=== PATIENT | male | born 1975 | race Caucasian/White ===

== ENCOUNTER 2021-08-05 20:06 | Outpatient (REF) | payer OTHER, SELFPAY ==
[2021-08-05 22:43] LABS: PSA, Screening 0.4 ng/mL (0.0-2.5)
== END 2021-08-05 20:07 | disposition home or self-care (01) ==
LOC: LBN 20:06
PROVIDERS: Visit Provider Nurse Practitioner Gerontology
DX: N13.8 Other obstructive and reflux uropathy (principal); N40.1 Benign prostatic hyperplasia with lower urinary tract symptoms; Z12.5 Encounter for screening for malignant neoplasm of prostate
CPT/HCPCS: 84153

== ENCOUNTER 2022-01-05 09:26 | Outpatient (CLI) | payer OTHER, SELFPAY ==
--- NOTE | 2022-01-05 08:45 | DI.RAD_ITS ---
Exam(s) XR SHOULDER RT COMPLETE 2+V EXAM: XR SHOULDER RT COMPLETE 2+V CLINICAL HISTORY: right shoulder pain TECHNIQUE: COMPARISON: No exams were available for comparison FINDINGS: Two views were obtained. There are marginal osteophytes of the glenoid. Minimal hypertrophic change s at the AC joint noted as well. No other bony or soft tissue abnormality seen. Cartilaginous joint space of the glenohumeral joint appears fairly well maintained. IMPRESSION: RADIATION DOSE DELIVERED: Total DLP
== END 2022-01-05 09:27 | disposition home or self-care (01) ==
LOC: DIORS 09:27
PROVIDERS: Visit Provider Student in an Organized Health Care Education/Training Program
DX: M25.511 Pain in right shoulder (principal)
CPT/HCPCS: 73030

== ENCOUNTER → 2022-01-28 00:28 | Outpatient (CLI) | payer OTHER, SELFPAY ==
--- NOTE | 2022-01-28 | DI.DEXA_ITS ---
Exam(s) XR DEXA BONE DENSITY W/WO NEGRA EXAM: XR DEXA BONE DENSITY W/WO NEGRA CLINICAL HISTORY: OSTEOPENIA,F/U 05/29/2017 T SCORE OF -1.4 TECHNIQUE: [employer] Horizon C densitometer analysis of left hip, lumbar spine and left forearm. COMPARISON: [facility] BONE DENSITOMETRY from 05/29/2017from [facility] systems in [facility] FINDINGS: Lateral view of the thoracic and lumbar spine shows no evidence of compression fractures. Bone mineral density measurements of the lumbar spine correspond to a total T-score of 0.3, in the no rmal range. this is not significantly changed from the prior exam. Bone mineral density measurements of the left hip correspond to a total T-score of -1.2 . The femora l neck T-score is -1.3, in the mildly osteopenic range.. This is not significantly changed from mynor or.. The left forearm bone mineral density measurements correspond to a T-score of the distal 3rd of -1.7 , in the osteopenic range. The forearm was not analyzed on the prior exam.. IMPRESSION: Normal bone mineral density of the lumbar spine. Osteopenia of the left hip and left forearm.
== END ==
PROVIDERS: Visit Provider Emergency Medicine
DX: Z13.820 Encounter for screening for osteoporosis (principal); M85.89 Other specified disorders of bone density and structure, multiple sites
CPT/HCPCS: 77080

== ENCOUNTER → 2022-03-08 03:03 | Outpatient (CLI) | payer OTHER, SELFPAY ==
--- NOTE | 2022-03-08 06:45 | DI.MRI_ITS ---
Exam(s) MR UPPER JOINT RT WO EXAM: MR UPPER JOINT RT WO CLINICAL HISTORY: R SHOULDER PAIN,RT RTC TENDONITIS,ARTHRITIS RT AC JOINT,BURSITIS,M75.51,. TECHNIQUE: Multiplanar multisequence MRI was performed. COMPARISON: MR MR SHOULDER RT WO CONTRAST from 12/16/2020 CR XR SHOULDER RT COMPLETE 2+V from 01/05/2022 FINDINGS: The examination is limited due to patient motion artifact. BONES: There is no fracture or contusion pattern. JOINTS: Mild degenerative changes seen at the acromioclavicular joint. The glenohumeral joint is nor mal. TENDONS: Supraspinatus: Small focus of hyperintense signal seen in the supraspinatus tendon near the musculote ndinous junction which may represent a small intrasubstance tear. Infraspinatus: Unremarkable. Subscapularis: Hyperintense signal seen in the subscapularis tendon near its insertion site consisten t with an intrasubstance tear. Teres Minor: Unremarkable. Biceps and [place]: Unremarkable. MUSCLES: Unremarkable. GLENOID LABRUM: Unremarkable on this noncontrast examination. SOFT TISSUES: Unremarkable. LIGAMENTS: Unremarkable. OTHER: Subacromial and subdeltoid bursae are unremarkable. IMPRESSION: 1. Hyperintense signal seen in the subscapularis tendon near its insertion site consistent with an in trasubstance tear. 2. Focus of hyperintense signal seen in the supraspinatus tendon near the musculotendinous junction w hich may represent a small intrasubstance tear. 3. Degenerative changes seen at the acromioclavicular joint. DATA REPOSITORY:
== END ==
PROVIDERS: Visit Provider Student in an Organized Health Care Education/Training Program
DX: M25.511 Pain in right shoulder (principal); M19.011 Primary osteoarthritis, right shoulder; M75.81 Other shoulder lesions, right shoulder; M75.101 Unspecified rotator cuff tear or rupture of right shoulder, not specified as traumatic; M75.21 Bicipital tendinitis, right shoulder; M75.51 Bursitis of right shoulder
CPT/HCPCS: 73221

== ENCOUNTER 2022-05-12 08:50 | Day surgery (SDC) | payer OTHER, SELFPAY ==
[2022-05-12] VITALS (11 sets, daily range): BP systolic 105–139; BP diastolic 49–87; PULSE 50–65; RESP 10–18; TEMP 36.2–36.6; O2SAT 92–99; BMI 36.4
--- NOTE | 2022-05-12 09:25 | W.ANESPRE ---
General Info Date of Service Date Performed: 05/12/22 Height: 5 ft 11 in Weight: 118.5 kg Body Mass Index (BMI): 36.4 Surgical Procedure: Operation Date: 05/12/22 11:10 Proposed Procedure Side Surgeon p Shoulder Arthroscopy w/Extensive Debridement, Subacromial Decompression,Distal Clavicle Excision and Possible Biceps Tenodesis Right Grant Prieto MD Meds Allergies and Home Medications Allergies Allergy/AdvReac Type Severity Reaction Status Date / Time aripiprazole [From Abiliy] Allergy Anaphylaxis Verified 05/12/22 09:03 house dust AdvReac Intermediate Verified 05/12/22 09:03 pollen extracts AdvReac Intermediate Verified 05/12/22 09:03 Home Medication Medication Instructions Recorded acetaminophen 325 mg capsule 325 mg PO ONCE PRN 06/29/21 adalimumab 40 mg/0.8 mL 40 mg subcut Q2W 06/29/21 subcutaneous syringe kit (Humira) albuterol 90 mcg/actuation aerosol mcg inhalation DAILY 06/29/21 inhaler aspirin 81 mg tablet,delayed 81 mg PO DAILY 06/29/21 release atenolol 50 mg tablet 50 mg PO DAILY 06/29/21 calcium carbonate 200 mg calcium 200 mg PO BID PRN 06/29/21 (500 mg) chewable tablet (Antacid (calcium carbonate)) calcium carbonate 500 mg-vitamin 1 tab PO DAILY 06/29/21 D3 10 mcg (400 unit) tablet (Oystercal-D) cetirizine 10 mg tablet 10 mg PO DAILY PRN 06/29/21 cholecalciferol (vitamin D3) 25 25 mcg PO DAILY 06/29/21 mcg (1,000 unit) capsule cyanocobalamin (vitamin B-12) 1,000 mcg subcut QMONTH 06/29/21 1,000 mcg/mL injection solution docusate sodium 100 mg capsule 100 mg PO DAILY PRN 06/29/21 emollient combination no.40 applic topical BID 06/29/21 (Cetaphil DailyAdvance lotion) fexofenadine 180 mg tablet 180 mg PO DAILY 06/29/21 fluticasone furoate 50 inhalation 06/29/21 mcg/actuation blister powder for inhalation ibuprofen 600 mg tablet 600 mg PO Q8H PRN 06/29/21 lactobacillus combination no.9 4 1 cell PO DAILY 06/29/21 billion cell capsule (Adult 50 Plus Probiotic) omega 4-fmn-pwz-fish oil 1,000 mg 1 cap PO DAILY 06/29/21 (120 mg-180 mg) capsule (Fish Oil) omeprazole 20 mg capsule,delayed 20 mg PO DAILY 06/29/21 release psyllium husk 3.4 gram/5.4 gram 1 tbsp PO DAILY 06/29/21 oral powder (Metamucil) sennosides 8.6 mg capsule (senna) 17.2 mg PO DAILY PRN 06/29/21 buprenorphine HCl 8 mg sublingual 8 mg sublingual DAILY 12/07/21 tablet tamsulosin 0.4 mg capsule (Flomax) 0.4 mg PO DAILY 12/07/21 levetiracetam 500 mg tablet 1,500 mg PO DAILY 03/16/22 rosuvastatin 20 mg tablet 20 mg PO DAILY 03/16/22 Current Visit Medications: Current Medications Generic Name Dose Route Start Last Admin Trade Name Freq PRN Reason Stop Dose Admin Ringer's Solution 1,000 mls @ 30 mls/hr 05/12/22 06:00 IV 06/10/22 23:59 INFUSION STACY Cefazolin Sodium/Dextrose 2 gm in 50 mls @ 100 mls/hr 05/12/22 06:00 Ancef Duplex IVPB 06/10/22 23:59 PREOP STACY IV Miscellaneous Supplies 1 each 05/12/22 06:00 Iv Access IV 06/10/22 23:59 DIRECTED STACY Oxycodone HCl 0 mg 05/12/22 07:26 Oxycodone 5 Mg Tab PO Q3H PRN PRN Pain Sodium Chloride 0 ml 05/12/22 06:00 Normal Saline Flush 10 Ml Syr IV 06/10/22 23:59 PRN PRN Sodium Chloride 0 ml 05/12/22 06:00 Normal Saline 10 Ml Vial IJ 06/10/22 23:59 DIRECTED PRN Sterile Water 0 ml 05/12/22 06:00 Water,Injection,Sterile 10 Ml Vial IJ 06/10/22 23:59 DIRECTED PRN PFSH Active Problems Active Problems: Problem Status Onset Code Lower urinary tract symptoms (LUTS) R39.9 Bursitis of right shoulder M75.51 Biceps tendinitis of right shoulder M75.21 Arthritis of right acromioclavicular joint M19.011 Right rotator cuff tendonitis M75.81 Medical History Medical History Acute hemorrhoid Antisocial personality disorder BPH w urinary obs/LUTS Chest pain COVID-19 Edema LEs chronic Epilepsy GERD (gastroesophageal reflux disease) Hearing loss HLD (hyperlipidemia) HTN (hypertension) Paroxysmal SVT (supraventricular tachycardia) 12/2021 UVM, Holter monitor and Zio patch PND (paroxysmal nocturnal dyspnea) Psoriasis Syncopal episodes Surgical History Surgical History (Updated 05/12/22 @ 09:03 by Amelia Espinoza RN) History of tonsillectomy Tobacco Smoking/Tobacco Use Status: Former Tobacco Use Alcohol Alcohol Intake: never Substance Use Substance use type: does not use Vital Signs and Lab Results Vital Signs Most Recent Vital Signs in EMR: Most Recent Vital Signs Temp Pulse Resp BP Pulse Ox 36.5 C 51 L 18 120/83 96 05/12/22 09:12 05/12/22 09:12 05/12/22 09:12 05/12/22 09:12 05/12/22 09:12 Lab Results Blood Type / Crossmatch: No Data to Display Complete Blood Count: No Data to Display Complete Metabolic Panel: No Data to Display Liver Function Panel: No Data to Display Coagulation Panel: No Data to Display Cardiac Panel: No Data to Display Arterial Blood Gas: No Data to Display Venous Blood Gas: No Data to Display Pancreas Panel: No Data to Display Thyroid Panel: No Data to Display Infectious Disease: No Data to Display Blood Cultures: No Data to Display Toxicology Panel: No Data to Display Anesthesia Assessment and Plan Anesthesia History Personal History: No History of Anesthesia Complications Family History: No Family History of Anesthesia Complications Exercise Tolerance Exercise Tolerance: Metabolic Equivalents>4 Pertinent Negatives Pertinent Negatives: No Symptoms of GERD Cardiac & Pulmonary Exam Cardiac Exam: Normal S1/S2 Heart Sounds Pulmonary Exam: Clear Bilateral Breath Sounds Implantable Cardiac Device Does patient have a Pacemaker or an ICD?: No Airway Exam Known Difficult Airway: No Mallampati Class: 1 Mouth Opening: Normal (> 3cm) Thyromental Distance: Greater than 3 cm Neck Range of Motion: Full ROM Neck Circumference: Normal Teeth Condition: Normal Dentition ASA Classification ASA Score: ASA 3 Emergency Case?: No NPO Status NPO Status: NPO Clears >2 hours, Solids >8 hours Anesthesia Plan Resuscitation Status: Full Code Anesthesia Technique: General Anesthesia Airway Planned: Endotracheal Tube Pain Management: Surgeon and patient request nerve block Monitors Used: Standard Monitors
[2022-05-12] MEDS: Lactated Ringers 1,000 ML 30 ML IV (09:47)
[2022-05-12] MEDS: ceFAZolin 2 GM/50 ML BAG IVPB (10:27)
[2022-05-12] MEDS: EPINEPHrine 30 MG/30 ML VIAL (11:00)
--- NOTE | 2022-05-12 11:14 | W.ANESNERVE ---
Nerve Block Single Injection Procedure Date and Time Date Performed: 05/12/22 Procedure Start: 10:20 Location Where Procedure Performed Procedure Location: Day Surgery Unit Reason Performed: Postoperative Analgesia Requesting Provider: Grant Prieto Timeout Performed Timeout Performed: Yes Monitoring Used ECG, Blood Pressure, SpO2 and See EMR for corresponding vital signs Sterility Sterility: Hand Hygiene, Surgical Cap, Surgical Mask, Sterile Gloves and Chlorhexidine Sedation Given During Procedure Sedation Given (Indicate Dose Given): Versed IV Dose:: 2mg Patient Mental Status Patient Mental Status: Awake Nerve Block 1st Nerve Block: Laterality: Right Block Type: Supraclavicular Needle / Catheter Used: 100mm SonoPlex II Local Anesthetic Bolus (Indicate Dose Given): Lidocaine used for local infiltration of skin, Injected in 3-5ml increments after negative blood aspiration, Bupivacaine 0.5% Dose:: 10ml and Exparel Dose:: 10ml Additives (Indicate Dose Given): None Ultrasound: Sterile probe cover and gel used Ultrasound Image Saved?: Yes Nerve Stimulator: Not Used Paresthesia: None Procedure Tolerated: No Complications and Patient tolerated well Procedure Outcome: Successful Performed By: Korey Sal
[2022-05-12] MEDS: Bupivacaine 0.25% Pres-Free W/EPI 30 ML VIAL (11:18)
--- NOTE | 2022-05-12 12:00 | W.PM.OP ---
Date of service: 05/12/22 Time of Service: 11:00 Operative Note Operative Note DATE OF PROCEDURE: 05/12/22 PRE-OP DIAGNOSIS: Right: 1. SLAP tear 2. AC joint arthritis 3. Bursitis POST-OP DIAGNOSIS: same PROCEDURE: Right: 1. Arthroscopic distal clavicle excision, CPT# 73469. This involved arthroscopically exposing the underside of the acromioclavicular joint, smoothing out bone spurs, and removing approximately 5 mm of the distal clavicle so there was no bone left engaging the acromion. 2. Arthroscopic biceps tenodesis, CPT# 10067. This involved arthroscopically suturing and reattaching the long head of the biceps tendon to the proximal humerus at the superior margin of the bicipital groove with a screw at the correct tension. 3. Extensive debridement, CPT# 78008. This involved using arthroscopic hand instruments, power instruments, and radiofrequency instruments to release the long head of the biceps tendon and debride areas of SLAP tear, labral tearing, synovitis, and partial articular rotator cuff tearing working within the glenohumeral joint anteriorly, superiorly and posteriorly. 4. Subacromial decompression with partial acromioplasty, CPT# 04487. This involved using arthroscopic power instruments and a radiofrequency wand to complete a bursectomy and smooth the undersurface of the acromion. The assistant chief nursing officer was medically required in order to help assist in techniques above, which require positioning the arm, holding the arthroscope, and manipulating multiple instruments and sutures at the same time. This cannot be done without the help of an experienced assistant chief nursing officer. SURGEON: Grant Prieto [employer] DIRECTOR: Ramila Trinh ANESTHESIA TYPE: Local By Surgeon, General LMA/ETT and Primary Nerve Block Refer to Anesthesia Record ESTIMATED BLOOD LOSS: 10 PATHOLOGY: none sent COMPLICATIONS: None Patient was transported to: PACU Patient's condition: stable Implants: Arthrex: 4.75mm SwiveLocks x 1 Indications: The patient was diagnosed with the above conditions and appropriately indicated for surgical intervention. Please see complete medical record for details. Findings: Exam under anesthesia: Full range of motion, no instability Glenohumeral joint: Mild upper lateral partial subscapularis tear with stable footprint. Intact articular supraspinatus and infraspinatus footprint attachment. Mild capsulitis articular sided central transtendinous supraspinatus tear. Intact long head biceps tendon with mild injection bicipital groove. SLAP tear with unstable biceps anchor. Degenerative type frayed anterior and anterior-inferior labrum. Subacromial space: Moderate bursitis. Mild bursal articular rotator cuff fraying without structural disruption. Mild undersurface acromial prominence. Impinging, irregular distal clavicle on acromion joint. Procedure Description: In the operating room, general anesthesia was induced. Bilateral shoulders were examined. The patient was positioned in the beachchair position. All bony prominences were well-padded. Preoperative antibiotics were administered. The shoulder was prepped and draped in the usual sterile fashion. The correct patient, procedure, and side of the procedure were all verified prior to incision. Starting through the posterior portal a standard complete diagnostic arthroscopy was performed of the glenohumeral joint including inspection of the long head of the biceps, anterior and superior labrum, subscapularis tendon, supraspinatus and infraspinatus tendons, and axillary recess. The glenoid and humeral head cartilage as well as the posterior labrum were inspected from an anterior viewing portal. Significant findings and interventions noted above. An all-arthroscopic suprapectoral biceps tenodesis was performed through an anterior portal using a Loop N Tack method with a SutureTape FiberLink cinched around and through the tendon. The biceps was tenotomized from the labrum and fixated with a suture anchor at the superior margin of the bicipital groove. Starting through the posterior portal, the arthroscope was directed into the subacromial space. A lateral 50 yard line lateral portal was omitted. The anterior portal was redirected in subacromial space. A combination of power instruments and a radiofrequency ablator were used to debride bursitis anteriorly, posteriorly, and laterally as well as expose and smooth the undersurface of the acromion. The coracoacromial ligament was partially released. The bursectomy was completed and the rotator cuff was thoroughly inspected with findings noted above. The anterior portal was redirected towards the undersurface of the AC joint. A shaver and electrocautery device were used to clear soft tissue from the undersurface of the AC joint. The distalmost 5 mm of the distal clavicle was then removed and smoothed. Care was taken to ensure that proper amount of bone was removed and there was no engaging bone left behind especially superiorly. The shoulder was drained of arthroscopic fluid. Both portal sites were copiously irrigated. These incisions were closed using 3-0 Monocryl in a buried fashion and then covered with Mastisol, Steri-Strips, Xeroform, dry gauze, and ABDs. The dressings were covered and secured with Medipore tape. The operative extremity was placed into a sling for immobilization. The patient awoke from anesthesia without complication and was transferred to the recovery room in a stable condition.
--- NOTE | 2022-05-12 13:39 | W.PM.DSUDISC ---
Date of service: 05/12/22 Time of Service: 13:37 Discharge Plan Disposition Patient Disposition: Home Discharge Details Attending Provider: Grant Prieto Primary Care Provider: None,None Home Meds and New Rx's Prescriptions: New naproxen 250 mg tablet 250 - 500 mg PO BID PRNQty: 20 0RF Rx Instructions: take with a meal oxycodone 5 mg tablet 5 - 10 mg PO Q4H MDD 30 mg PRN (Reason: moderate to severe pain) Qty: 18 0RF Continued cyanocobalamin (vitamin B-12) 1,000 mcg/mL solution 1,000 mcg subcut QMONTH Cetaphil DailyAdvance Lotion topical BID Adult 50 Plus Probiotic 4 billion cell capsule 1 cell PO DAILY Humira 40 mg/0.8 mL syringe kit 40 mg subcut Q2W atenolol 50 mg tablet 50 mg PO DAILY omeprazole 20 mg capsule,delayed release(DR/EC) 20 mg PO DAILY cholecalciferol (vitamin D3) 25 mcg (1,000 unit) capsule 25 mcg PO DAILY Metamucil 3.4 gram/5.4 gram powder 1 tbsp PO DAILY Rx Instructions: mix into at least 8 oz of water or juice before administering aspirin 81 mg tablet,delayed release (DR/EC) 81 mg PO DAILY calcium carbonate-vitamin D3 [Oystercal-D] 500 mg-10 mcg (400 unit) tablet 1 tab PO DAILY omega 5-wle-afe-fish oil [Fish Oil] 1,000 mg (120 mg-180 mg) capsule 1 cap PO DAILY cetirizine 10 mg tablet 10 mg PO DAILY PRN fluticasone furoate 50 mcg/actuation blister with device inhalation acetaminophen 325 mg capsule 325 mg PO ONCE PRN fexofenadine 180 mg tablet 180 mg PO DAILY docusate sodium 100 mg capsule 100 mg PO DAILY PRN senna 8.6 mg capsule 17.2 mg PO DAILY PRN calcium carbonate [Antacid (calcium carbonate)] 200 mg calcium (500 mg) tablet,chewable 200 mg PO BID PRN albuterol 90 mcg/actuation aerosol inhalation DAILY rosuvastatin 20 mg tablet 20 mg PO DAILY tamsulosin [Flomax] 0.4 mg capsule 0.4 mg PO DAILY buprenorphine HCl 8 mg tablet, sublingual 8 mg sublingual DAILY levetiracetam 500 mg tablet 1,500 mg PO DAILY Discontinued ibuprofen 600 mg tablet 600 mg PO Q8H PRN Discharge Instructions Additional Instructions: Surgery: Right shoulder arthroscopy with extensive debridement, biceps tenodesis, subacromial decompression, and distal clavicle excision The typical patient would be discharged home to self-protect the shoulder with sling and not require any inpatient care or strict medical isolation/separation. This patient must skip his next scheduled Humira dose on 05/16/2022. Resume biweekly Humira dosing on 05/30/2022. Activity: You should gradually increase range of motion motion and use of your shoulder. You may use your shoulder for all regular activities while protecting the biceps repair. Avoid any weighted elbow flexion or resisted supination for 6-8 weeks. No heavy lifting, reaching overhead, or lifting away from body for approximately 2-3 months. You may use the sling whenever you are out of the house for a few weeks. At home it is best to remove the sling and rest the arm on a pillow at your side or support the operative side with your other hand. Prescriptions: Resume aspirin 81 mg daily tomorrow afternoon, >24 hours after surgery Naproxen 250 mg take 1-2 every 12 hours with a meal as needed for moderate pain (if this is not working, may switch back to ibuprofen 800 mg twice daily as needed) Oxycodone 5 mg take 1-2 every 4-6 hours as needed for severe pain (as we discussed, this medication might not work as well as usual due to buprenorphine) You may use [id number] Tylenol (acetaminophen) as needed for mild pain. These pain medications may be taken all at once or in different combinations as needed. Also, recommend Colace (docusate) as a stool softener as surgery and pain medicine cause constipation. You may try [id number] diphenhydramine (Benadryl) 25-50 mg nightly as a sleep aid Dressings: Remove shoulder bandage after 3 days. Leave the sticky Steri-Strips in place until they fall off or remove them after you shower. Cover the incisions with Band-Aids or leave them open to air. You may shower after 5 days. Follow-up: 10-[address] Prieto May 25, 2022 @ 1:00 pm. You may take off the leg compression stockings this evening at home. You may also leave them on a few days longer if you have a history of leg swelling or edema. Let us know right away if you develop any redness, drainage, fevers, chest pain, or trouble breathing. Do not drink alcohol or drive for at least 24 hours after anesthesia. Please call the office during business hours with any questions or concerns. Stand Alone Forms: Anesthesia Discharge Inst., Anes.Nerve Block Instructions, Augustin Wilkins (DSU) Discharge Orders Discharge Orders: Discharge Order (Routine); Ordered 05/12/22 Ordered By: Grant Prieto DS: Diagnosis Discharge Diagnosis (1) Arthritis of right acromioclavicular joint: Status: Acute (2) Biceps tendinitis of right shoulder: Status: Acute (3) Bursitis of right shoulder: Status: Acute (4) Right rotator cuff tendonitis: Status: Acute
--- NOTE | 2022-05-12 15:14 | W.ANESPOSTOP ---
Postoperative Evaluation Date, Time and Location Date Performed: 05/12/22 Time Performed: 13:45 Patient Location: Day Surgery Unit Vital Signs Most Recent Imported Vital Signs: Most Recent Vital Signs Temp Pulse Resp BP Pulse Ox 36.2 C L 50 L 16 131/75 97 05/12/22 13:34 05/12/22 13:34 05/12/22 13:34 05/12/22 13:34 05/12/22 13:34 Pain Score Most Recent Pain Score: Most Recent Pain Score Pain Level 0 05/12/22 13:34 Assessment Mental Status: Awake (Alert & Oriented to Patient Baseline) Airway and Respiratory Function: Patent airway with normal (patient baseline) respiratory exam Cardiovascular Function: Hemodynamically Stable Hydration Status: Adequately Hydrated Nausea & Vomiting: No Nausea or Vomiting Pain: Pt. Denies Any Pain Peripheral Nerve Block: Regional nerve block not resolved at time of post operative discharge
== END 2022-05-12 14:26 | disposition home or self-care (01) ==
PROVIDERS: Visit Provider Student in an Organized Health Care Education/Training Program
PROC: (CPT 29805; principal; 2022-05-12 11:00)
DX: M19.011 Primary osteoarthritis, right shoulder (principal); M75.21 Bicipital tendinitis, right shoulder; M75.51 Bursitis of right shoulder; M75.81 Other shoulder lesions, right shoulder; G40.909 Epilepsy, unspecified, not intractable, without status epilepticus; Z79.899 Other long term (current) drug therapy
CPT/HCPCS: 29828; 29824; 29823; 29826; 76942; J0690; J1100; J1885; J2250; J2370; J2405; J2704